=== PATIENT | male | born 1995 | race Two or more races ===

== ENCOUNTER 2018-06-11 03:24 | Emergency (ER) | payer MEDICAID ==
[~2018-06-11] VITALS: Ht 175.3 cm; Wt 90.7 kg
[2018-06-11 03:57] LABS: Basophils # (auto) 0 uL; Basophils % (auto) 0.3 % (0.0-2.0); Eosinophils # (auto) 0 uL; Eosinophils % (auto) 0.3 % (0.0-7.0); Hematocrit 44.6 % (41.0-53.0); Hemoglobin 15.4 g/dL (13.5-17.5); Lymphocytes # (auto) 1.5 uL; Lymphocytes % (auto) 13.4 % (10.0-50.0); Mean Corpuscular Hemoglobin 30.5 pg (28.0-32.0); Mean Corpuscular Hgb Conc. 34.5 g/dL (32.0-36.0); Mean Corpuscular Volume 88.5 fL (80.0-100.0); Monocytes # (auto) 0.8 uL; Neutrophils # (auto) 8.6 uL; Platelet Count (auto) 295 10^3/uL (140-450); Red Blood Cells 5.05 10^6/uL (4.5-5.90); Red Cell Distribution Width 13.2 % (11.8-14.3); White Blood Cell 10.9 10^3/uL (4.4-10.8)
[2018-06-11 04:17] LABS: Chloride 105 mmol/L (98-107); Sodium 139 mmol/L (136-145)
[2018-06-11 04:19] LABS: Albumin 4.2 g/dL (3.4-5.0); Anion Gap 9 (5-15); Blood Urea Nitrogen 19 mg/dL (7-18); Calcium 8.5 mg/dL (8.5-10.1); Carbon Dioxide 25 mmol/L (21-32); Glucose 169 mg/dL (74-106)
[2018-06-11 04:22] LABS: Alanine Aminotransferase 21 U/L (16-61); Aspartate Aminotransferase 16 U/L (15-37); BUN/Creatinine Ratio 18.4; GFR African American 113 mL/min; GFR Non-African American 94 mL/min
[2018-06-11 04:25] LABS: Alkaline Phosphatase 86 U/L (45-117); Bilirubin, Total 0.2 mg/dL (0.2-1.0); Total Protein 7.9 g/dL (6.4-8.2)
[2018-06-11 05:10] LABS: Urine Bacteria FEW /hpf (None Seen); Urine Blood Negative /uL (Negative); Urine Specific Gravity 1.014 (1.001-1.035); Urine WBC 1 /hpf (0 - 3)
[2018-06-11 05:41] LABS: Alcohol, Urine < 3.0 mg/dL (0-5); Amphetamine Screen, Urine NEGATIVE (NEGATIVE); Benzodiazephine Screen, Urine NEGATIVE (NEGATIVE); Cannabinoid Screen, Urine POSITIVE (NEGATIVE); Cocaine Screen, Urine NEGATIVE (NEGATIVE); Opiate Scree,Urine NEGATIVE (NEGATIVE); Phencyclidine Screen, Urine NEGATIVE (NEGATIVE)
[2018-06-11 06:02] LABS: Barbiturate Scree,Urine NEGATIVE (NEGATIVE)
[2018-06-11 08:21] VITALS: BP 122/76
== END 2018-06-11 08:21 | disposition home or self-care (01) ==
LOC: ER 03:29
DX: R07.89 Other chest pain (principal); R42 Dizziness and giddiness; F12.10 Cannabis abuse, uncomplicated
CPT/HCPCS: 36415; 80053; 80307; 81001; 83735; 84484; 85025